=== PATIENT | female | born 1980 | race Caucasian/White ===

== ENCOUNTER → 2016-08-25 | Outpatient (CLI) | payer OTHER ==
[~2016-08-25] MED LIST: ALBU8.5H4 IH; NO HOME MEDS; PRED20TA PO
[2016-08-25 16:26] VITALS: BP 113/80
--- NOTE | 2016-08-25 16:26 | Urgent Care T Sheet Gen (E) ---
Intake General Temperature (Fahrenheit): 99.2 Pulse: 74 Blood Pressure Systolic: 113 Blood Pressure Diastolic: 80 Respirations: 18 SPO2: 97 Description of Symptoms Patient presents with sharp, intermittent epigastric pain. Started last night at 10:50pm. Patient states it is only present when she eats and drinks and usually resolves on its own after an hour or so. No nausea or vomiting. No history of GERD or similar symptoms. Didn't eat anything out of the ordinary last night. No fever. Patient hasn't taken any meds. States she is afraid to eat and cause any symptoms. History of Present Illness Allergies: Coded Allergies: No Known Drug Allergies (Unverified , 01/25/14) Home Meds Active Scripts Albuterol Sulfate (Albuterol Sulfate Hfa)8.5 Gm Hfa.aer.ad8.5 Gm IH Q4H #1 INHALER Prov:DUSTIN REMY DO 01/24/14 Prednisone 20 Mg Tablet3 Tab PO DAILY #15 TAB Ref 0 Prov:DUSTIN REMY DO 01/24/14 Reported Medications [No Home Meds] No Conflict Check 02/06/14 Respiratory Constitutional Symptoms: No syptoms reported EENTM: No symptoms reported Respiratory: No symptoms reported Gastrointestinal/Abdominal: Abdominal painNo Constipation, No Diarrhea, No Nausea, No Vomiting All Other Systems Reviewed Remaining Systems: All other systems reviewed with negative findings Past Pzruxon-Yvqkay-Jpiqud Hx Cardiovascular Cardiovascular History: None Reproductive System Sexually Transmitted Diseases: No Gastrointestinal GI/Endocrine History: None Physical Exam Physical Exam General Appearance: WD/WN No apparent distress Eyes, Ears, Nose, Throat Ex: TMs normal Pharynx normal Neck Exam: SuppleNo Lymphadenopathy Respiratory Exam: Lungs clear Normal breath sounds Cardiovascular Exam: Regular rate, rhythm GI/ Exam: Normal bowel sounds Tenderness (gastric and epigastric regions.) No Guarding, No Rebound Progress/Orders Progress Note: Progress Note CBC was unremarkable aside from slightly elevated mean platelet volume CMP was unremarkable aside from low calculated osmolality H.pylori is being sent out and it pending. Departure Urgent Care Impression Impression: Primary Impression: Epigastric abdominal pain Departure Disposition: HOME OR SELF-CARE Condition: Stable Additional Instructions: Given the patient's lab results and symptoms, I believe she has a peptic ulcer. I have started her on Prilosec OTC daily. May bump it up to 40mg daily if needed I will call once H.pylori results are known and will treat appropriately. She may supplement with Milk of Mag or Tums. Avoid NSAIDs for pain, take Tylenol instead If abd pain worsens or changes, she is to present to the ER for further workup Patient understands DC instructions. All questions were answered. End of report . SIGIFREDO SALVADOR Aug 25, 2016 15:45
--- NOTE | 2016-08-26 16:38 | Urgent Care Follow Up Note (E) ---
Urgent Care Follow Up Note I called patient to discuss her H.pylori results however no one answered and I wasn't able to leave a voicemail. H.pylori was negative. If she calls asking for results, my instructions include: continuing current treatment of omeprazole. May increase to 40mg daily if needed. If no better in 4 weeks, f/u with PCP or return to for possible referral to Dr Davey for EGD SIGIFREDO SALVADOR Aug 26, 2016 16:38
== END ==
LOC: MHUC 13:48
PROVIDERS: ATTEND Physician Assistant
DX: R10.13 Epigastric pain (principal)

== ENCOUNTER → 2016-08-25 | Outpatient (CLI) | payer OTHER ==
[2016-08-25 14:31] LABS: BASOPHILS % (AUTO) 1 % (0-2); EOSINOPHILS # (AUTO) 0.1 10^3uL; EOSINOPHILS % (AUTO) 2 % (0-4); LYMPHOCYTES # (AUTO) 2.1 X10^3; MEAN CORPUSCULAR HGB CONC 34.6 g/dL (31.0-37.0); MEAN CORPUSCULAR VOLUME 91 FL (80-100); MONOCYTES # (AUTO) 0.8 X10^3; MONOCYTES % (AUTO) 11 % (3-11); NEUTROPHILS % (AUTO) 56 % (51-67); PLATELET COUNT 217 10^3uL (150-450)
[2016-08-25 14:34] LABS: MEAN CORPUSCULAR HEMOGLOBIN 31.6 PG (26.0-34.0)
[2016-08-25 14:41] LABS: ALBUMIN 4.3 g/dL (3.4-5.0); ANION GAP 13.7 MEQ/L (3-15); TOTAL PROTEIN 7.3 g/dL (6.4-8.5)
== END ==
LOC: LAB 14:13
PROVIDERS: ATTEND Physician Assistant
DX: R10.13 Epigastric pain (principal)
CPT/HCPCS: 36415; 80053; 85025; 86677